=== PATIENT | female | born 1980 | race Caucasian/White ===

== ENCOUNTER → 2018-06-04 13:54 | Outpatient (CLI) | payer MEDICARE, SELFPAY ==
--- NOTE | 2018-06-04 13:58 | VDLE_ITS ---
Reason For Study: LEG SWELLING RIGHT LEFT GSV is normal. GSV is normal. CFV is compressible, spontaneous, phasic, CFV is compressible, spontaneous, phasic, competent and demonstrates normal competent, and demonstrates normal augmentation. augmentation. FV is compressible, spontaneous, phasic, FV is compressible, spontaneous, phasic, competent and demonstrates normal competent and demonstrates normal augmentation. augmentation. POP V is compressible, spontaneous, phasic, POP V is compressible, spontaneous, phasic, competent and demonstrates normal competent and demonstrates normal augmentation. augmentation. T/P Trunk is compressible. T/P Trunk is compressible. PTV is compressible. PTV is compressible. RT PerV is compressible. LT PerV is compressible. Procedure Exam performed in department. A preliminary report was called and/or faxed to Kizzy Rizvi. Interpretation Summary Deep veins of the lower extremities are bilaterally patent and compressible segmentally. There is no evidence of deep vein thrombosis on either side. Valvular competence appears intact within the proximal deep venous systems bilaterally. The greater saphenous veins appear bilaterally patent and compressible segmentally. Ordering Physician: Laura Lee Referring Physician: Black Davis Performed By: Laila Hinkle RVT
== END ==
PROVIDERS: Family Provider Student in an Organized Health Care Education/Training Program; PCP Student in an Organized Health Care Education/Training Program; Visit Provider Nurse Practitioner Family
DX: M79.89 Other specified soft tissue disorders (principal); I83.11 Varicose veins of right lower extremity with inflammation
CPT/HCPCS: 93970

== ENCOUNTER 2018-11-06 19:51 | Emergency (ER) | payer MEDICARE, SELFPAY ==
[2018-11-06 19:58] VITALS: BP 98/68; PULSE 103; PULSE 99; RESP 14; RESP 18; TEMP 36.8; O2SAT 100; BMI 40.3
--- NOTE | 2018-11-06 20:15 | RAD_ITS ---
STUDY: X-RAY - RIGHT FOOT CLINICAL: Female, 38 years old. Fall. TECHNIQUE: 3 view(s) of the foot. COMPARISON: None. FINDINGS: There is a plantar calcaneal spur. Normal visualized subtalar, talonavicular, calcaneocuboid, tarsal and tarsometatarsal articulations. Normal metatarsi. Normal metatarsophalangeal joint of the great toe. Normal tibial and fibular sesamoid bones. Normal interphalangeal joint of the great toe. Normal phalanges of the great toe. Normal second through fifth metatarsophalangeal joints. Normal interphalangeal joints and phalanges of the lesser toes. The soft tissue structures are unremarkable. There is no demonstrated fracture. RAD/Foot min 3 Views IMPRESSION: No acute abnormality. Moderate calcaneal spur. Electronically Signed: Levi Pinto MD at 20:31 EST , Service support ,
--- NOTE | 2018-11-06 20:48 | RAD_ITS ---
STUDY: X-RAY - RIGHT ANKLE REASON FOR EXAM: Female, 38 years old. Fall. Pain. TECHNIQUE: 3 view(s) of the ankle. COMPARISON: None. FINDINGS: There is a nondisplaced fracture that runs horizontally across the lateral malleolus. No other fractures or dislocations. Normal tibiotalar articulation and ankle mortise. Normal visualized talus and calcaneus. The visualized subtalar, talonavicular, calcaneocuboid and tarsal articulations are normal. There is lateral soft tissue swelling. RAD/Ankle min 3 Views IMPRESSION: There is a nondisplaced fracture that runs horizontally across the lateral malleolus. Electronically Signed: Levi Pinto MD at 21:29 EST , Service support ,
--- NOTE | 2018-11-06 20:58 | ED.DCSUM_ITS ---
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 has persistent pain she points to the pain diffusely over the foot Achilles and ankle distant history for fracture of the foot no other complaints no other injury Physical Examination: [] 109/80, General, no distress resting comfortably HEENT is generally unremarkable The neck is supple no adenopathy Cardiovascular, regular rate and rhythm Lungs, clear bilateral Abdomen, soft nontender Extremities, no clubbing cyanosis or edema she has a nonspecific vague diffuse discomfort to the ankle her Achilles appears to be intact but she has difficulty with dorsi and plantar flexion she has some discomfort over her calcaneus skin is intact pulses are symmetric toes are normal with good capillary refill and sensation Neurologic, awake alert answering questions appropriately moving all 4 extremities Test Results: [] Emergency Department Course and Treatment: [] X-rays were obtained pain management, the foot and ankle x-rays are unremarkable except per radiology ther e appears to be a nondisplaced fracture of the lateral malleolus, I explained to the also the concept of injury to the Achilles tendon, she is fitted with a walking boot crutches no weightbearing Naprosyn for pain she is referred to Dr. Tapia of was to orthopedics or the orthopedic surgeon of her choice and she will follow-up with them further management the next day or 2 and return for change in symptoms Treatment Plan: [] Disposition: [] Stable home Impression: [] Right ankle fracture as above This note was generated with [employer] dictation software. It may contain incorrect words, spelling, and punctuation that were not noted in review of the chart prior to signing ED Disposition - Plan for ED Patient: Chief Complaint: Lower Extremity Injury Referrals: Black Araujo DO [Primary Care Provider] -
[2018-11-06] MEDS: HYDROcodone Bitartrate/Apap 5/325 Tablet PO (20:59)
--- NOTE | 2018-11-06 21:45 | ED.DEP ---
ED Disposition - Plan for ED Patient: Chief Complaint: Lower Extremity Injury Instructions: ED Fx Ankle Lateral Malleolus Prescriptions: Naproxen [Naprosyn] 500 mg PO BID PRN #20 tab Referrals: Black Araujo DO [Primary Care Provider] - Brant Tapia MD [STAFF PHYSICIAN] -
== END 2018-11-06 22:03 | disposition home or self-care (01) ==
LOC: ED 20:53
PROVIDERS: Emergency Provider Emergency Medicine; Family Provider Student in an Organized Health Care Education/Training Program; PCP Student in an Organized Health Care Education/Training Program
DX: S82.64XA Nondisplaced fracture of lateral malleolus of right fibula, initial encounter for closed fracture (principal); X50.1XXA Overexertion from prolonged static or awkward postures, initial encounter; Y93.9 Activity, unspecified; Y92.9 Unspecified place or not applicable
CPT/HCPCS: 73610; 73630; 99283

== ENCOUNTER → 2020-05-05 08:48 | Outpatient (CLI) | payer MEDICARE, SELFPAY | PROVIDERS: PCP Student in an Organized Health Care Education/Training Program; Referring Provider Registered Nurse; Visit Provider Registered Nurse | DX: R07.89 Other chest pain (principal); R00.2 Palpitations | CPT/HCPCS: 93225; 93226 ==